=== PATIENT | male | born 1985 | race Caucasian/White ===

== ENCOUNTER 2017-09-18 10:07 | Inpatient (IN) ==
[2017-09-18 11:08] LABS: Baso # (Auto) 0.1 th/mm3 (0.0-0.2); Baso % (Auto) 1.1 % (0.0-2.0); Eos # (Auto) 0.2 th/mm3 (0.0-0.4); Eos % (Auto) 4.4 % (0.0-4.0); Hematocrit 46.2 % (39.0-51.0); Hemoglobin 15.4 gm/dL (13.0-17.0); Lymph # (Auto) 1.6 th/mm3 (1.0-4.8); Lymph % (Auto) 34.2 % (9.0-44.0); Mean Corpuscular HGB Conc 33.3 % (32.0-36.0); Mean Corpuscular Hemoglobin 30.5 pg (27.0-34.0); Mean Corpuscular Volume 91.7 fL (80.0-100.0); Mean Platelet Volume 8.9 fL (7.0-11.0); Mono # (Auto) 0.4 th/mm3 (0.0-0.9); Mono % (Auto) 7.8 % (0.0-8.0); Neut # (Auto) 2.5 th/mm3 (1.8-7.7); Neut % (Auto) 52.5 % (16.0-70.0); Platelet Count 236 th/mm3 (150-450); Red Blood Count 5.04 mil/mm3 (4.50-5.90); Red Cell Distribution Width 13.3 % (11.6-17.2); White Blood Count 4.8 th/mm3 (4.0-11.0)
[2017-09-18 11:30] LABS: Carbon Dioxide 28.5 meq/L (21.0-32.0)
[2017-09-18] MEDS ORDERED: Vancomycin Inj 1 GM/200 ML PIGGYBACK IV.SIG ONE (14:56)
[2017-09-18] MEDS ORDERED: Piperacil/Tazo 3.375 GM Premix 50 ML IV.SIG ONE (14:56)
--- NOTE | 2017-09-18 15:02 | ED ---
HPI General Chief complaint: Skin/Abscess/Foreign Body Stated complaint: Right Foot Complaint Time Seen by Provider: 09/18/17 14:43 History of Present Illness HPI narrative: Patient states that he injured his right foot last Monday and 2 days later became infected. He went to an urgent care facility and they gave him a shot of Rocephin and told him to come back for recheck in 2 days. He also got an x-ray to check to see if "infection went to the bone" but he was told it was negative. Started on Augmentin 875 mg p.o. twice daily since September 13 he reports compliance. Despite compliance with medication the infection has spread. He denies fever, vomiting, or drainage from wound. Also states that he has dysuria and head of his penis has painful excoriation. He denies any penile discharge or a history of STD. Last sex was one and a half weeks ago and was protected. Related Data Home Medications Medication Instructions Recorded Confirmed amoxicillin 875 mg PO BID 09/18/17 09/18/17 hydrocodone-acetaminophen 1 tab PO Q6H PRN 09/18/17 09/18/17 Allergies Allergy/AdvReac Type Severity Reaction Status Date / Time No Known Allergies Allergy Unverified 09/18/17 10:20 Review of Systems ROS Unobtainable All other systems reviewed negative except as stated in HPI PMFSH Social History Social History Substance History: Active Abuse Second Hand Smoke Exposure: Yes Smoking Status: Current every day smoker Tobacco Type: Cigarettes How Often Do You Have a Drink Containing Alcohol: Never Recent Travel in [facility] [place] within the Last 8 Weeks: No Recent Out of Country Travel within the Last 8 Weeks: No Substance Abuse Detail Marijuana: Substance Use Status: Active Route Used Substance Abuse: Inhalation Reason for Use: Feels Good Immunization History Tetanus Immunization: Unsure Hx Influenza Vaccine This Season: No Exam Narrative Exam Narrative: GENERAL: No acute distress. SKIN: Focused skin assessment warm/dry. HEAD: Atraumatic. Normocephalic. EYES: Pupils equal and round. No scleral icterus. No injection or drainage. ENT: No nasal bleeding or discharge. Mucous membranes pink and moist. NECK: Trachea midline. No JVD. CARDIOVASCULAR: Regular rate and rhythm. No murmur appreciated. RESPIRATORY: No accessory muscle use. Clear to auscultation. Breath sounds equal bilaterally. GASTROINTESTINAL: Abdomen soft, non-tender, nondistended. Hepatic and splenic margins not palpable. MUSCULOSKELETAL: Right foot: 2+ DP pulse, positive swelling along the dorsum of the right foot, erythema, no crepitus, sensation intact and full range of motion , no drainage NEUROLOGICAL: Awake and alert. No obvious cranial nerve deficits. Motor grossly within normal limits. Normal speech. PSYCHIATRIC: Appropriate mood and affect; insight and judgment normal. : No penile discharge but erythematous scaly lesion on the head of the penis Course Initial Documented Vital Signs Temperature 97.9 F 09/18/17 10:13 Pulse Rate 83 09/18/17 10:13 Respiratory Rate 16 09/18/17 10:13 Blood Pressure 132/60 09/18/17 10:13 Pulse Oximetry 99 09/18/17 10:13 Last Documented Vital Signs Temperature 97.9 F 09/18/17 10:13 Pulse Rate 64 09/18/17 16:23 Respiratory Rate 16 09/18/17 16:23 Blood Pressure 113/61 09/18/17 16:23 Pulse Oximetry 97 09/18/17 16:23 Medical Decision Making [facility] Narrative Medical decision making narrative: Patient presents to the emergency department with worsening cellulitis of right foot and penile lesion and dysuria. Labs were sent in triage. I have added on urine gonorrhea chlamydia, right foot x- ray, and 1 g IV vancomycin and 3.375 g of IV Zosyn. Patient likely an admission secondary to failing p.o. antibiotics as an outpatient. Normal lactate and CBC. Sightly decreased glucose on chemistry. Xray shows no acute abnormality. ua- for UTI. Patient has urine gc/chlmaydia and blood cultures pending at time of admission. Differential Diagnosis Differential Diagnosis: Cellulitis, abscess, sexually transmitted infection Lab Data Result diagrams: 09/18/17 10:39 09/18/17 10:39 Lab Results 09/18/17 09/18/17 09/18/17 Range/Units 10:39 10:39 10:39 WBC 4.8 (4.0-11.0) th/mm3 RBC 5.04 (4.50-5.90) mil/mm3 Hgb 15.4 (13.0-17.0) gm/dL Hct 46.2 (39.0-51.0) % MCV 91.7 (80.0-100.0) fL MCH 30.5 (27.0-34.0) pg MCHC 33.3 (32.0-36.0) % RDW 13.3 (11.6-17.2) % Plt Count 236 (150-450) th/mm3 MPV 8.9 (7.0-11.0) fL Neut % (Auto) 52.5 (16.0-70.0) % Lymph % (Auto) 34.2 (9.0-44.0) % [place] % (Auto) 7.8 (0.0-8.0) % Eos % (Auto) 4.4 H (0.0-4.0) % Baso % (Auto) 1.1 (0.0-2.0) % Neut # (Auto) 2.5 (1.8-7.7) th/mm3 Lymph # (Auto) 1.6 (1.0-4.8) th/mm3 [place] # (Auto) 0.4 (0.0-0.9) th/mm3 Eos # (Auto) 0.2 (0.0-0.4) th/mm3 Baso # (Auto) 0.1 (0.0-0.2) th/mm3 WBC Differential . Differential Comment Auto diff final Sodium 140 (136-145) meq/L Potassium 4.0 (3.5-5.1) meq/L Chloride 104 (98-107) meq/L Carbon Dioxide 28.5 (21.0-32.0) meq/L Anion Gap 8 (5-15) meq/L BUN 13 (7-18) mg/dL Creatinine 1.21 (0.60-1.30) mg/dL Estimated GFR 69 L (>89) mL/min Random Glucose 63 L (74-106) mg/dL Lactic Acid 2.0 (0.4-2.0) mmol/L Calcium 9.0 (8.5-10.1) mg/dL Urine Color (Yellw/Straw) Urine Clarity (Clear) Urine pH (5.0-8.5) Ur Specific [place] (1.002-1.035) Urine Protein (Neg-Trace) mg/dL Urine Glucose (UA) (Negative) mg/dL Urine Ketones (Negative) mg/dL Urine Occult Blood (Negative) Urine Nitrate (Negative) Urine Bilirubin (Negative) Urine Urobilinogen (Less than 2) mg/dL Ur Leukocyte Esterase (Negative) Urine RBC (0-3) /hpf Urine WBC (0-5) /hpf Micro UA Comment Urine Culture Comments 09/18/17 Range/Units 15:10 WBC (4.0-11.0) th/mm3 RBC (4.50-5.90) mil/mm3 Hgb (13.0-17.0) gm/dL Hct (39.0-51.0) % MCV (80.0-100.0) fL MCH (27.0-34.0) pg MCHC (32.0-36.0) % RDW (11.6-17.2) % Plt Count (150-450) th/mm3 MPV (7.0-11.0) fL Neut % (Auto) (16.0-70.0) % Lymph % (Auto) (9.0-44.0) % [place] % (Auto) (0.0-8.0) % Eos % (Auto) (0.0-4.0) % Baso % (Auto) (0.0-2.0) % Neut # (Auto) (1.8-7.7) th/mm3 Lymph # (Auto) (1.0-4.8) th/mm3 [place] # (Auto) (0.0-0.9) th/mm3 Eos # (Auto) (0.0-0.4) th/mm3 Baso # (Auto) (0.0-0.2) th/mm3 WBC Differential Differential Comment Sodium (136-145) meq/L Potassium (3.5-5.1) meq/L Chloride (98-107) meq/L Carbon Dioxide (21.0-32.0) meq/L Anion Gap (5-15) meq/L BUN (7-18) mg/dL Creatinine (0.60-1.30) mg/dL Estimated GFR (>89) mL/min Random Glucose (74-106) mg/dL Lactic Acid (0.4-2.0) mmol/L Calcium (8.5-10.1) mg/dL Urine Color Yellow (Yellw/Straw) Urine Clarity Clear (Clear) Urine pH 6.0 (5.0-8.5) Ur Specific [place] 1.023 (1.002-1.035) Urine Protein Negative (Neg-Trace) mg/dL Urine Glucose (UA) Negative (Negative) mg/dL Urine Ketones Trace (Negative) mg/dL Urine Occult Blood Negative (Negative) Urine Nitrate Negative (Negative) Urine Bilirubin Negative (Negative) Urine Urobilinogen 2.0 H (Less than 2) mg/dL Ur Leukocyte Esterase Negative (Negative) Urine RBC Less than 1 (0-3) /hpf Urine WBC Less than 1 (0-5) /hpf Micro UA Comment Culture not ind Urine Culture Comments Culture not ind Imaging Data Radiologist's impression: Foot X-Ray 09/18/17 14:56 CONCLUSION: No acute right foot abnormality is identified. There are no features to suggest osteomyelitis. Discharge Plan Discharge Disposition Patient Disposition: 30 Still Patient Discharge Condition Condition: Stable Discharge Details Diagnosis: Cellulitis Physicians Team ED Provider: Sabrina Espinosa Primary Care Provider: UNKNOWN, Rxs /Orders / Referrals /Forms Prescriptions: No Action amoxicillin 875 mg Tablet 875 mg PO BID RF: 0 hydrocodone-acetaminophen 7.5-325 mg Tablet 1 tab PO Q6H PRN (Reason: Pain) RF: 0 Discharge Interventions Interventions: Vital Signs Last Done: 09/18/17 16:23 Status ED Status: With Doctor
[2017-09-18] MEDS ORDERED: Vancomycin Inj 1,000 MG in Sodium Chlor 0.9% Inj 250 ML IV.SIG ONE (15:15)
--- NOTE | 2017-09-18 15:54 | XR ---
EXAM DATE: 09/18/2017 3:38 PM EDT AGE/SEX: 32 years / Male INDICATIONS: Blister on right 3rd digit, possible infection. CLINICAL DATA: This is the patient's initial encounter. Patient reports that signs and symptoms have been present for 1 week and indicates a pain score of 0/10. MEDICAL/SURGICAL HISTORY: None. None. COMPARISON: No prior exams available for comparison. FINDINGS: 3 views of the right foot demonstrate no fracture or dislocation. Mineralization is within normal cruz its. The Lisfranc joint appears intact. There is subchondral sclerosis with osteophytes at the calcan eonavicular articulation. No soft tissue abnormality or radiopaque foreign body is identified. CONCLUSION: No acute right foot abnormality is identified. There are no features to suggest osteomyelitis. Electronically signed by: Elkin Gibson MD 09/18/2017 3:52 PM EDT
[2017-09-18 16:13] LABS: Bilirubin,Urine Negative (Negative); Clarity,Urine Clear (Clear); Color,Urine Yellow (Yellw/Straw); Glucose,Urine (UA) Negative (Negative); Leukocyte Esterase,Urine Negative (Negative); Nitrite,Urine Negative (Negative); Specific Gravity,Urine 1.023 (1.002-1.035)
[2017-09-18] MEDS ORDERED: Bisacodyl 10 MG Supp RECTAL PRN (16:53)
[2017-09-18] MEDS ORDERED: Acetaminophen 325 MG Tablet PO PRN (16:54)
[2017-09-18] MEDS ORDERED: Vancomycin Inj 1,000 MG in Sodium Chlor 0.9% Inj 250 ML IV.SIG SCH (17:03)
[2017-09-18] MEDS ORDERED: Vancomycin Consult Pharmacy 1 EACH OTHER SCH (17:03)
[2017-09-18] MEDS ORDERED: Piperacil/Tazo 3.375 GM Premix 50 ML IV.SIG SCH ×2 (17:15→18:00)
[2017-09-18] MEDS: Enoxaparin Inj 40 MG/0.4 ML Syringe SQ SCH (17:47)
--- NOTE | 2017-09-18 18:19 | P.HP ---
History of Present Illness Service: [facility] Primary Care Physician: UNKNOWN Chief Complaint: Infection in my foot History of Present Illness: 32-year-old male with no past medical history who presents to the emergency department with complaints of right foot infection. Patient reports that several days ago he noticed a blister on the top of his right foot middle toe due to his steel toe boots. He began noticing redness, and swelling and became concerned and visited an urgent care on Monday. Patient reports that he was given a Rocephin shot and returned back to urgent care on after having x-rays done. On Monday when he was seen in the urgent care patient reports he received another Rocephin shot and an attempt was made to drain foot infection however he reports that nothing drained out of it. He was provided with Augmentin and states that he has been taking this as prescribed. He began noticing swelling once again along with warmth, and redness. Patient also states that pain became worse therefore decided to come to the emergency department for further evaluation. He denies fevers, chills, nausea, vomiting, diarrhea, cough or shortness of breath. Patient does report white patches on the inside of his mouth since starting oral Augmentin. He also reports dysuria along with a white colored discharge and states that he feels as if "things are plugged up". Patient also noticed a sore on the head of his penis which she is very concerned over, denies any pain. Last sexual contact was about 1-1/2 weeks ago with protection. - Diagnosis (1) Failure of outpatient treatment (2) Candidiasis of mouth (3) Penile discharge (4) Cellulitis Inpatient Certification: I certify that the inpatient services were ordered in accordance with Medicare regulations governing the order. This includes certification that hospital inpatient services are reasonable and necessary and in the case of services not specified as inpatient-only under 42 CFR 419.22(n), that they are appropriately provided as inpatient services in accordance to with the 2-midnight benchmark under 43 CFR 412.3(e) Estimated Total Length of Stay (Days): 3 Plans for Post Hospital Care: Home Review of Systems All other systems reviewed negative except as stated in HPI PMFSH - History History Provided By: Patient - Medical History Medical History: Medical History (Last Updated 09/18/17 @ 18:33 by Anushka Clemente) Group A streptococcal infection Staph infection - Tobacco History Second Hand Smoke Exposure: Yes Tobacco Use In Past 30 Days: Yes Smoking Status: Current every day smoker Tobacco Type: Cigarettes - Alcohol History How Often Do You Have a Drink Containing Alcohol: Never - Substance Use History Substance History: Active Abuse - Substance Use Type Marijuana Status: Active Route Used: Inhalation Reason for Use: Feels Good - Travel History Recent Travel in the [place] Within the Last 8 Weeks: No Recent Travel Out of the Country Within the Last 8 Weeks: No - Immunization History Tetanus Immunization: Unsure Hx Influenza Vaccine This Season: No Medications and Allergies Active Medications: Active Medications Acetaminophen (Tylenol) 650 mg PO Q4H PRN PRN Reason: Temp > 100.4 Al Hydroxide/Mg Hydroxide (Milk Of Magnesia Liq) 30 ml PO Q12H PRN PRN Reason: Mild Constipation Bisacodyl (Dulcolax Supp) 10 mg RECTAL DAILY PRN PRN Reason: SEVERE CONSITIPATION Enoxaparin Sodium (Lovenox Inj) 40 mg SQ Q24H [facility] Last Admin: 09/18/17 17:47 Dose: 40 mg Sodium Chloride (Ns Inj) 1,000 mls @ 100 mls/hr IV.CONT .Q10H [facility] Pharmacy Profile Note (Vancomycin Consult Pharmacy) 0 mls @ 0 mls/hr OTHER UNSCH [facility] Piperacillin/Tazobactam/Dextrose (Zosyn 3.375 Gm Premix) 50 mls @ 100 mls/hr IV.SIG Q8H [facility] Vancomycin HCl 1,000 mg/ (Sodium Chloride) 250 mls @ 250 mls/hr IV.SIG Q12H [facility] Lactulose (Lactulose Liq) 30 ml PO DAILY PRN PRN Reason: SEVERE CONSITIPATION Metoclopramide HCl (Reglan Inj) 5 mg IV.PUSH Q6HR PRN; Protocol PRN Reason: NAUSEA OR VOMITING Miscellaneous Information ([facility] [facility] Ordered Lab Info) 0 each OTHER ONCE ONE Stop: 09/20/17 15:46 Senna/Docusate Sodium (Celi-Colace) 1 tab PO BID [facility] Sennosides (Senokot) 17.2 mg PO Q12H PRN PRN Reason: Moderate Constipation Temazepam (Restoril) 15 mg PO HS PRN PRN Reason: INSOMNIA Allergies Allergy/AdvReac Type Severity Reaction Status Date / Time No Known Allergies Allergy Unverified 09/18/17 10:20 Home Medications Medication Instructions Recorded Confirmed Type amoxicillin 875 mg PO BID 09/18/17 09/18/17 History hydrocodone-acetaminophen 1 tab PO Q6H PRN 09/18/17 09/18/17 History Exam Vital signs: Vital Signs 09/18/17 10:13 09/18/17 10:19 09/18/17 16:23 Temperature 36.6 C Pulse Rate 83 64 Respiratory Rate 16 17 16 Blood Pressure 132/60 113/61 Pulse Oximetry 99 97 Intake & Output 09/17/17 09/18/17 09/18/17 18:59 06:59 18:59 Weight 77.111 kg Narrative: GENERAL: Well-developed well-nourished young male, appears to be in no acute distress. SKIN: Warm and dry. HEAD: Atraumatic. Normocephalic. EYES: Pupils equal and round. No scleral icterus. No injection or drainage. ENT: No nasal bleeding or discharge. Mucous membranes pink and moist. White patches noted on cheek mucous membranes. NECK: Trachea midline. No JVD. CARDIOVASCULAR: Regular rate and rhythm. RESPIRATORY: No accessory muscle use. Clear to auscultation. Breath sounds equal bilaterally. GASTROINTESTINAL: Abdomen soft, non-tender, nondistended. GENITOURINARY: (Male RN digital tech in room during exam.) Dry erythematous scaly lesion noted on head of penis. Meatus with dry white discharge. MUSCULOSKELETAL: Extremities without clubbing or cyanosis. No obvious deformities. Right foot third metatarsal with dry wound noted on dorsal aspect , surrounding erythema, warmth, and edema. Trace edema also noted on dorsal aspect of foot + tenderness. Capillary refill <3 seconds, normal ROM in sensation. NEUROLOGICAL: Awake and alert, oriented x3. No obvious cranial nerve deficits. Motor grossly within normal limits. Five out of 5 muscle strength in the arms and legs. Normal speech. PSYCHIATRIC: Appropriate mood and affect; insight and judgment normal. Results - Labs CBC & Chem 7: 09/18/17 10:39 09/18/17 10:39 Labs: Laboratory Results - last 24 hr 09/18/17 09/18/17 09/18/17 10:39 10:39 10:39 WBC 4.8 RBC 5.04 Hgb 15.4 Hct 46.2 MCV 91.7 MCH 30.5 MCHC 33.3 RDW 13.3 Plt Count 236 MPV 8.9 Neut % (Auto) 52.5 Lymph % (Auto) 34.2 [place] % (Auto) 7.8 Eos % (Auto) 4.4 H Baso % (Auto) 1.1 Neut # (Auto) 2.5 Lymph # (Auto) 1.6 [place] # (Auto) 0.4 Eos # (Auto) 0.2 Baso # (Auto) 0.1 WBC Differential . Differential Comment Auto diff final Sodium 140 Potassium 4.0 Chloride 104 Carbon Dioxide 28.5 Anion Gap 8 BUN 13 Creatinine 1.21 Estimated GFR 69 L Random Glucose 63 L Lactic Acid 2.0 Calcium 9.0 Urine Color Urine Clarity Urine pH Ur Specific [place] Urine Protein Urine Glucose (UA) Urine Ketones Urine Occult Blood Urine Nitrate Urine Bilirubin Urine Urobilinogen Ur Leukocyte Esterase Urine RBC Urine WBC Micro UA Comment Urine Culture Comments 09/18/17 15:10 WBC RBC Hgb Hct MCV MCH MCHC RDW Plt Count MPV Neut % (Auto) Lymph % (Auto) [place] % (Auto) Eos % (Auto) Baso % (Auto) Neut # (Auto) Lymph # (Auto) [place] # (Auto) Eos # (Auto) Baso # (Auto) WBC Differential Differential Comment Sodium Potassium Chloride Carbon Dioxide Anion Gap BUN Creatinine Estimated GFR Random Glucose Lactic Acid Calcium Urine Color Yellow Urine Clarity Clear Urine pH 6.0 Ur Specific [place] 1.023 Urine Protein Negative Urine Glucose (UA) Negative Urine Ketones Trace Urine Occult Blood Negative Urine Nitrate Negative Urine Bilirubin Negative Urine Urobilinogen 2.0 H Ur Leukocyte Esterase Negative Urine RBC Less than 1 Urine WBC Less than 1 Micro UA Comment Culture not ind Urine Culture Comments Culture not ind - Imaging Impressions Foot X-Ray 09/18/17 14:56 CONCLUSION: No acute right foot abnormality is identified. There are no features to suggest osteomyelitis. Caprini VTE Risk Assessment Caprini VTE Risk Assessment: No/Low Risk (score <= 1) Caprini Risk Assessment Model: Point Value = 1 Point Value = 2 Point Value = 3 Point Value = 5 Age 41-60 Minor surgery BMI > 25 kg/m2 Swollen legs Varicose veins or History of unexplained or recurrent spontaneous Oral contraceptives or hormone replacement Sepsis (< 1 month) Serious lung disease, including pneumonia (< 1 month) Abnormal pulmonary function Acute myocardial infarction Congestive heart failure (< 1 month) History of inflammatory bowel disease Medical patient at bed rest Age 61-74 Arthroscopic surgery Major open surgery (> 45 min) Laparoscopic surgery (> 45 min) Malignancy Confined to bed (> 72 hours) Immobilizing plaster cast Central venous access Age >= 75 History of VTE Family history of VTE Factor V Leiden Prothrombin [id number] Lupus anticoagulant Anticardiolipin antibodies Elevated serum homocysteine Heparin-induced thrombocytopenia Other congenital or acquired thrombophilia Stroke (< 1 month) Elective arthroplasty Hip, pelvis, or leg fracture Acute spinal cord injury (< 1 month) Prophylaxis Regimen: Total Risk Factor Score Risk Level Prophylaxis Regimen 0-1 Low Early ambulation 2 Moderate Order ONE of the following: *Sequential Compression Device (SCD) *Heparin 5000 units SQ BID 3-4 Higher Order ONE of the following medications: *Heparin 5000 units SQ TID *Enoxaparin/Lovenox 40 mg SQ daily (WT < 150 kg, CrCl > 30 mL/min) *Enoxaparin/Lovenox 30 mg SQ daily (WT < 150 kg, CrCl > 10-29 mL/min) *Enoxaparin/Lovenox 30 mg SQ BID (WT < 150 kg, CrCl > 30 mL/min) AND/OR *Sequential Compression Device (SCD) 5 or more Highest Order ONE of the following medications: *Heparin 5000 units SQ TID (Preferred with Epidurals) *Enoxaparin/Lovenox 40 mg SQ daily (WT < 150 kg, CrCl > 30 mL/min) *Enoxaparin/Lovenox 30 mg SQ daily (WT < 150 kg, CrCl > 10-29 mL/min) *Enoxaparin/Lovenox 30 mg SQ BID (WT < 150 kg, CrCl > 30 mL/min) AND *Sequential Compression Device (SCD) Assessment and Plan - Assessment (1) Failure of outpatient treatment Code(s): Z78.9 - Other specified health status Status: Acute (2) Candidiasis of mouth Code(s): B37.0 - Candidal stomatitis Status: Acute (3) Penile discharge Code(s): R36.9 - Urethral discharge, unspecified Status: Acute (4) Cellulitis Code(s): L03.90 - Cellulitis, unspecified Status: Acute - Plan 32-year-old male who presents to the emergency department with complaints of worsening right foot pain and infection. Patient recently seen and evaluated in urgent care s/p attempted I&D. Right foot cellulitis Failed outpatient treatment (Augmentin) -CBC reviewed, no leukocytosis, lactic acid 2.0, hemodynamically stable no tachycardia, afebrile - blood cultures 2 obtained and pending, wound is dry, unable to obtain specimen for culture -Foot x-ray completed reviewed, no acute right foot abnormality identified, no features to suggest osteomyelitis. -Patient was given 1 dose of IV Zosyn and vancomycin in the emergency department, will continue -IV fluids for hydration, most likely discontinue tomorrow. -Pain control with p.o. Santa Claus Oral candidiasis -Secondary to Augmentin, nystatin swish and swallow Penile discharge -UA essentially unremarkable, pending chlamydia and gonorrhea -Whit discharge appears to be candidiasis, symptoms also began after starting oral Augmentin - Will treat with 1 timed dose of Diflucan, monitor response. DVT prophylaxis-subcu Lovenox Discussed Condition With: , patient, and mother. (4) Cellulitis Qualifiers: Site of cellulitis: extremity Site of cellulitis of extremity: lower extremity Laterality: right Qualified Code(s): L03.115 - Cellulitis of right lower limb
[2017-09-18] MEDS ORDERED: Fluconazole 100 MG Tablet PO ONE (18:25)
[2017-09-18] MEDS ORDERED: Naloxone Inj 0.4 MG/ML Vial IV.PUSH PRN (18:45)
[2017-09-18] MEDS: Sod Chloride 0.9% Inj 1,000 ML IV.CONT SCH (19:47)
[2017-09-18] MEDS: Senna/Docusate Sodium 8.6/50 MG Tablet PO SCH (21:42)
[2017-09-18] MEDS: Temazepam 15 MG Capsule PO PRN (21:42)
[2017-09-18] MEDS: Nystatin Liq 500,000 UNIT/5 ML UDC SWISH-SWAL SCH (23:46)
[2017-09-19] MEDS: Piperacil/Tazo 3.375 GM Premix 50 ML IV.SIG SCH ×4 (02:03→23:59)
[2017-09-19] MEDS: Sod Chloride 0.9% Inj 1,000 ML IV.CONT SCH ×3 (05:42→23:00)
[2017-09-19] MEDS: Vancomycin Inj 1,000 MG in Sodium Chlor 0.9% Inj 250 ML IV.SIG SCH ×2 (05:42→16:50)
[2017-09-19] MEDS: Nystatin Liq 500,000 UNIT/5 ML UDC SWISH-SWAL SCH ×5 (08:18→20:00)
[2017-09-19] MEDS: Senna/Docusate Sodium 8.6/50 MG Tablet PO SCH ×2 (08:19→20:00)
[2017-09-19 11:03] LABS: Baso % (Auto) 1.1 % (0.0-2.0); Eos # (Auto) 0.2 th/mm3 (0.0-0.4); Eos % (Auto) 4.2 % (0.0-4.0); Hematocrit 43.8 % (39.0-51.0); Hemoglobin 14.6 gm/dL (13.0-17.0); Lymph # (Auto) 1.5 th/mm3 (1.0-4.8); Lymph % (Auto) 35.5 % (9.0-44.0); Mean Corpuscular HGB Conc 33.4 % (32.0-36.0); Mean Corpuscular Hemoglobin 30.4 pg (27.0-34.0); Mean Platelet Volume 8.6 fL (7.0-11.0); Mono # (Auto) 0.3 th/mm3 (0.0-0.9); Mono % (Auto) 8.2 % (0.0-8.0); Neut # (Auto) 2.2 th/mm3 (1.8-7.7); Platelet Count 227 th/mm3 (150-450); Red Blood Count 4.81 mil/mm3 (4.50-5.90); Red Cell Distribution Width 13.4 % (11.6-17.2); White Blood Count 4.3 th/mm3 (4.0-11.0)
[2017-09-19 11:24] LABS: Albumin 3.7 g/dL (3.4-5.0); Anion Gap 7 meq/L (5-15); Aspartate Aminotransferase 19 U/L (15-37); Blood Urea Nitrogen 11 mg/dL (7-18); Calcium 8.7 mg/dL (8.5-10.1); Carbon Dioxide 29.2 meq/L (21.0-32.0); Chloride 106 meq/L (98-107); Glomerular Filtration Rate 84 mL/min (>89); Glucose,Random 103 mg/dL (74-106); Potassium 4.2 meq/L (3.5-5.1); Sodium 142 meq/L (136-145)
[2017-09-19 11:27] LABS: Alanine Aminotransferase 25 U/L (12-78); Alkaline Phosphatase 85 U/L (45-117)
--- NOTE | 2017-09-19 14:43 | P.PN ---
Subjective Interval history: Patient is seen sitting up in bed eating lunch. His mother is present. He tells me that he is feeling better but is still suffering from irritation on his penis and sores in his mouth. He thinks that his foot is improved and is not as red or swollen as it was. Denies any shortness of breath or chest pain. Denies any nausea vomiting or diarrhea. He has been voiding well -just has some burning when urinating. He did have a nicotine patch placed however he said it made his arm itchy where it was. He took the patch off and it has improved. Does not desire any other nicotine replacement. Physical Exam Vital signs: Vital Signs 09/18/17 16:23 09/18/17 19:46 09/19/17 00:00 Temperature 98.9 F 98.6 F Pulse Rate 64 56 L 80 Respiratory Rate 16 16 17 Blood Pressure 113/61 121/70 124/69 Pulse Oximetry 97 96 09/19/17 04:00 09/19/17 07:41 09/19/17 12:00 Temperature 98.4 F 98.0 F 98.0 F Pulse Rate 68 78 66 Respiratory Rate 18 Blood Pressure 119/74 116/78 125/67 Pulse Oximetry 97 97 98 Intake & Output 09/18/17 09/19/17 09/19/17 18:59 06:59 18:59 Intake Total 1350 / 1350 300 / 300 Balance 1350 / 1350 300 / 300 Weight 77.111 kg Intake: IV 1350 / 1350 300 / 300 NS Inj 1,000 ML @ 100 mls/hr IV 1000 / 1000 .CONT .Q10H [facility] Rx#:[id number] Zosyn 3.375 GM Premix 50 ML @ 100 / 100 50 / 50 100 mls/hr IV.SIG Q8H [facility] Rx#: [id number] Vancomycin Inj 1,000 MG In NS 250 / 250 250 / 250 Inj 250 ML @ 250 mls/hr IV.SIG Q12H [facility] Rx#:[id number] Narrative: GENERAL: Well-developed well-nourished young male, appears to be in no acute distress. SKIN: Warm and dry. HEAD: Atraumatic. Normocephalic. EYES: Pupils equal and round. No scleral icterus. No injection or drainage. ENT: No nasal bleeding or discharge. Mucous membranes pink and moist. White patches noted on cheek mucous membranes. Small ulcerated lesion inside right corner of mouth. No notable adenopathy. NECK: Trachea midline. No JVD. CARDIOVASCULAR: Regular rate and rhythm. RESPIRATORY: No accessory muscle use. Clear to auscultation. Breath sounds equal bilaterally. GASTROINTESTINAL: Abdomen soft, non-tender, nondistended. GENITOURINARY: (Patient refused analysis internship) head of penis beefy red with crusting around meatus MUSCULOSKELETAL: Extremities without clubbing or cyanosis. No obvious deformities. Right foot third metatarsal with dry wound noted on dorsal aspect , surrounding erythema, warmth, and edema. Erythema extends to midfoot. trace edema also noted on dorsal aspect of foot + tenderness. Capillary refill <3 seconds, normal ROM in sensation. NEUROLOGICAL: Awake and alert, oriented x3. No obvious cranial nerve deficits. Motor grossly within normal limits. Five out of 5 muscle strength in the arms and legs. Normal speech. PSYCHIATRIC: Appropriate mood and affect; insight and judgment normal. Results - Labs CBC & Chem 7: 09/19/17 10:20 09/19/17 10:20 Laboratory Results - last 24 hr 09/18/17 09/18/17 09/19/17 10:22 15:10 10:20 WBC 4.3 RBC 4.81 Hgb 14.6 Hct 43.8 MCV 91.0 MCH 30.4 MCHC 33.4 RDW 13.4 Plt Count 227 MPV 8.6 Neut % (Auto) 51.0 Lymph % (Auto) 35.5 [place] % (Auto) 8.2 H Eos % (Auto) 4.2 H Baso % (Auto) 1.1 Neut # (Auto) 2.2 Lymph # (Auto) 1.5 [place] # (Auto) 0.3 Eos # (Auto) 0.2 Baso # (Auto) 0.0 WBC Differential . Differential Comment Auto diff final Sodium Potassium Chloride Carbon Dioxide Anion Gap BUN Creatinine Estimated GFR Random Glucose Calcium Total Bilirubin AST ALT Alkaline Phosphatase Total Protein Albumin Urine Color Yellow Urine Clarity Clear Urine pH 6.0 Ur Specific [place] 1.023 Urine Protein Negative Urine Glucose (UA) Negative Urine Ketones Trace Urine Occult Blood Negative Urine Nitrate Negative Urine Bilirubin Negative Urine Urobilinogen 2.0 H Ur Leukocyte Esterase Negative Urine RBC Less than 1 Urine WBC Less than 1 Micro UA Comment Culture not ind Urine Culture Comments Culture not ind Chlam trachomat DNA PCR Not detected N.gonorrhoeae DNA (PCR) Not detected 09/19/17 10:20 WBC RBC Hgb Hct MCV MCH MCHC RDW Plt Count MPV Neut % (Auto) Lymph % (Auto) [place] % (Auto) Eos % (Auto) Baso % (Auto) Neut # (Auto) Lymph # (Auto) [place] # (Auto) Eos # (Auto) Baso # (Auto) WBC Differential Differential Comment Sodium 142 Potassium 4.2 Chloride 106 Carbon Dioxide 29.2 Anion Gap 7 BUN 11 Creatinine 1.03 Estimated GFR 84 L Random Glucose 103 Calcium 8.7 Total Bilirubin 0.3 AST 19 ALT 25 Alkaline Phosphatase 85 Total Protein 7.0 Albumin 3.7 Urine Color Urine Clarity Urine pH Ur Specific [place] Urine Protein Urine Glucose (UA) Urine Ketones Urine Occult Blood Urine Nitrate Urine Bilirubin Urine Urobilinogen Ur Leukocyte Esterase Urine RBC Urine WBC Micro UA Comment Urine Culture Comments Chlam trachomat DNA PCR N.gonorrhoeae DNA (PCR) Microbiology 09/18/17 15:15 Blood - Peripheral Aerobic Blood Culture - Preliminary No growth in 1 day 09/18/17 15:15 Blood - Peripheral Anaerobic Blood Culture - Preliminary No growth in 1 day 09/18/17 10:39 Blood - Peripheral Aerobic Blood Culture - Preliminary No growth in 1 day 09/18/17 10:39 Blood - Peripheral Anaerobic Blood Culture - Preliminary No growth in 1 day - Imaging Impressions Foot X-Ray 09/18/17 14:56 CONCLUSION: No acute right foot abnormality is identified. There are no features to suggest osteomyelitis. Assessment and Plan - Assessment (1) Failure of outpatient treatment Code(s): Z78.9 - Other specified health status Status: Acute (2) Candidiasis of mouth Code(s): B37.0 - Candidal stomatitis Status: Acute (3) Penile discharge Code(s): R36.9 - Urethral discharge, unspecified Status: Acute (4) Cellulitis Code(s): L03.90 - Cellulitis, unspecified Status: Acute - Plan 32-year-old male who presents to the emergency department with complaints of worsening right foot pain and infection. Patient recently seen and evaluated in urgent care s/p attempted I&D. Also has complaint of penile irritation and discharge. Right foot cellulitis Failed outpatient treatment (Augmentin) -CBC reviewed, no leukocytosis, lactic acid 2.0, hemodynamically stable no tachycardia, afebrile - blood cultures 2 obtained and pending, wound is dry, unable to obtain specimen for culture -Foot x-ray completed reviewed, no acute right foot abnormality identified, no features to suggest osteomyelitis. -Patient was given 1 dose of IV Zosyn and vancomycin in the emergency department, will continue -IV fluids for hydration, discontinue when kidney function improves. -Pain control with p.o. [place] Oral candidiasis -Possibly secondary to Augmentin, nystatin swish and swallow Penile discharge -UA essentially unremarkable, negative chlamydia and gonorrhea -Suspect candidiasis -will order topical antifungal/steroid -Consider Diflucan after antibiotic treatment if not improved -Patient agrees to add additional STD testing -RPR, HIV and HSV ordered DVT prophylaxis-subcu Lovenox Discussed Condition With: Nurse, patient, and mother. (4) Cellulitis Qualifiers: Site of cellulitis: extremity Site of cellulitis of extremity: lower extremity Laterality: right Qualified Code(s): L03.115 - Cellulitis of right lower limb
[2017-09-19] MEDS: Enoxaparin Inj 40 MG/0.4 ML Syringe SQ SCH (16:46)
[2017-09-19] MEDS: Temazepam 15 MG Capsule PO PRN (20:00)
[2017-09-20] MEDS: Vancomycin Inj 1,000 MG in Sodium Chlor 0.9% Inj 250 ML IV.SIG SCH ×2 (03:54→16:19)
[2017-09-20] MEDS: Nystatin Liq 500,000 UNIT/5 ML UDC SWISH-SWAL SCH ×2 (08:12→12:22)
[2017-09-20] MEDS: Senna/Docusate Sodium 8.6/50 MG Tablet PO SCH (08:12)
[2017-09-20] MEDS: Piperacil/Tazo 3.375 GM Premix 50 ML IV.SIG SCH ×2 (08:12→16:20)
[2017-09-20] MEDS: Sod Chloride 0.9% Inj 1,000 ML IV.CONT SCH (08:15)
[2017-09-20 09:02] LABS: Eos # (Auto) 0.2 th/mm3 (0.0-0.4); Eos % (Auto) 5.2 % (0.0-4.0); Hematocrit 44.8 % (39.0-51.0); Lymph # (Auto) 1.8 th/mm3 (1.0-4.8); Lymph % (Auto) 42.1 % (9.0-44.0); Mean Corpuscular HGB Conc 33.5 % (32.0-36.0); Mean Corpuscular Hemoglobin 30.4 pg (27.0-34.0); Mean Corpuscular Volume 90.7 fL (80.0-100.0); Mean Platelet Volume 9.8 fL (7.0-11.0); Mono # (Auto) 0.3 th/mm3 (0.0-0.9); Mono % (Auto) 7.9 % (0.0-8.0); Neut # (Auto) 1.9 th/mm3 (1.8-7.7); Neut % (Auto) 43.8 % (16.0-70.0); Platelet Count 208 th/mm3 (150-450); Red Blood Count 4.94 mil/mm3 (4.50-5.90); Red Cell Distribution Width 13.5 % (11.6-17.2); White Blood Count 4.3 th/mm3 (4.0-11.0)
[2017-09-20 09:37] LABS: Albumin 3.6 g/dL (3.4-5.0); Anion Gap 8 meq/L (5-15); Aspartate Aminotransferase 16 U/L (15-37); Blood Urea Nitrogen 11 mg/dL (7-18); Calcium 8.9 mg/dL (8.5-10.1); Carbon Dioxide 28.7 meq/L (21.0-32.0); Chloride 104 meq/L (98-107); Glomerular Filtration Rate Greater Than 89 mL/min (>89); Glucose,Random 114 mg/dL (74-106); Potassium 3.9 meq/L (3.5-5.1); Sodium 141 meq/L (136-145)
[2017-09-20 09:38] LABS: Alanine Aminotransferase 25 U/L (12-78)
[2017-09-20 09:40] LABS: Alkaline Phosphatase 88 U/L (45-117)
[2017-09-20] MEDS ORDERED: Pharmacy Ordered Lab Info OTHER ONE (15:45)
--- NOTE | 2017-09-20 16:36 | P.PN ---
Subjective Interval history: Nursing denies any deterioration since last night. Patient thinks that his foot erythema and pain is improved. Still has some mild oral irritation with his oral ulcers. Says that his dysuria has improved. Physical Exam Vital signs: Vital Signs 09/19/17 20:00 09/19/17 20:30 09/20/17 00:00 Temperature 97.8 F 98.6 F Pulse Rate 66 64 Respiratory Rate 20 18 17 Blood Pressure 130/64 106/59 L Pulse Oximetry 97 100 09/20/17 04:59 09/20/17 08:00 09/20/17 12:00 Temperature 98.3 F 97.8 F Pulse Rate 69 67 Respiratory Rate 17 16 18 Blood Pressure 125/74 126/62 Pulse Oximetry 98 97 Intake & Output 09/19/17 09/20/17 09/20/17 18:59 06:59 18:59 Intake Total 2080 / 2080 540 / 540 1050 / 1050 Balance 2080 / 2080 540 / 540 1050 / 1050 Weight 77 kg Intake: IV 1600 / 1600 300 / 300 1050 / 1050 NS Inj 1,000 ML @ 100 mls/hr IV 1000 / 1000 1000 / 1000 .CONT .Q10H [facility] Rx#:[id number] Zosyn 3.375 GM Premix 50 ML @ 100 / 100 50 / 50 50 / 50 100 mls/hr IV.SIG Q8H [facility] Rx#: [id number] Vancomycin Inj 1,000 MG In NS 500 / 500 250 / 250 Inj 250 ML @ 250 mls/hr IV.SIG Q12H [facility] Rx#:[id number] Oral 480 / 480 240 / 240 Other: # Voids 1 3 Narrative: Erythematous glans penis diffusely with no ayse blistering noted. Very dry discharge noted at urethral meatus. No blistering or other lesions noted over the scrotum or thighs. Oral lesions appear to be ulcerated on loose gingiva but no ayse blistering. Right toe erythema is improved especially in comparison to the pictures that the patient has shown me upon admission. Has no significant pain upon distal phalanx manipulation. Able to bear weight without difficulty. Results - Labs CBC & Chem 7: 09/20/17 07:53 09/20/17 07:53 Laboratory Results - last 24 hr 07/18/18 07/18/18 07/18/18 07:53 07:53 07:53 WBC 4.3 RBC 4.94 Hgb 15.0 Hct 44.8 MCV 90.7 MCH 30.4 MCHC 33.5 RDW 13.5 Plt Count 208 MPV 9.8 Neut % (Auto) 43.8 Lymph % (Auto) 42.1 [place] % (Auto) 7.9 Eos % (Auto) 5.2 H Baso % (Auto) 1.0 Neut # (Auto) 1.9 Lymph # (Auto) 1.8 [place] # (Auto) 0.3 Eos # (Auto) 0.2 Baso # (Auto) 0.0 WBC Differential . Differential Comment Auto diff final Sodium Potassium Chloride Carbon Dioxide Anion Gap BUN Creatinine Estimated GFR Random Glucose Calcium Total Bilirubin AST ALT Alkaline Phosphatase Total Protein Albumin RPR Nonreactive HIV 1&2 Ab/P24 Ag 4thGn Nonreactive 09/20/17 07:53 WBC RBC Hgb Hct MCV MCH MCHC RDW Plt Count MPV Neut % (Auto) Lymph % (Auto) [place] % (Auto) Eos % (Auto) Baso % (Auto) Neut # (Auto) Lymph # (Auto) [place] # (Auto) Eos # (Auto) Baso # (Auto) WBC Differential Differential Comment Sodium 141 Potassium 3.9 Chloride 104 Carbon Dioxide 28.7 Anion Gap 8 BUN 11 Creatinine 0.93 Estimated GFR Greater than 89 Random Glucose 114 H Calcium 8.9 Total Bilirubin 0.2 AST 16 ALT 25 Alkaline Phosphatase 88 Total Protein 7.0 Albumin 3.6 RPR HIV 1&2 Ab/P24 Ag 4thGn Microbiology 09/18/17 15:15 Blood - Peripheral Aerobic Blood Culture - Preliminary No growth in 2 days 09/18/17 15:15 Blood - Peripheral Anaerobic Blood Culture - Preliminary No growth in 2 days 09/18/17 10:39 Blood - Peripheral Aerobic Blood Culture - Preliminary No growth in 2 days 09/18/17 10:39 Blood - Peripheral Anaerobic Blood Culture - Preliminary No growth in 2 days Assessment and Plan - Assessment (1) Failure of outpatient treatment Code(s): Z78.9 - Other specified health status Status: Acute (2) Candidiasis of mouth Code(s): B37.0 - Candidal stomatitis Status: Acute (3) Penile discharge Code(s): R36.9 - Urethral discharge, unspecified Status: Acute (4) Cellulitis Code(s): L03.90 - Cellulitis, unspecified Status: Acute - Plan Right second toe cellulitis, improving significantly with antibiotics, will discharge on Levaquin and doxycycline. RPR, HIV, gonorrhea, chlamydia tests are all negative. HSV tests are still pending. Patient was counseled on refraining from any sexual activity whatsoever for at least the next 2 weeks and ultimately needs to be cleared by PCP prior to returning to such activities well. Patient was extensively counseled on this matter. To continue with oral nystatin swish and swallow and to continue with oral Diflucan and topical nystatin/steroid cream for penile lesion. Patient has met maximal benefit from hospitalization and is clinically stable for discharge. (4) Cellulitis Qualifiers: Site of cellulitis: extremity Site of cellulitis of extremity: lower extremity Laterality: right Qualified Code(s): L03.115 - Cellulitis of right lower limb
[2017-09-20] MEDS ORDERED: Fluconazole 100 MG Tablet PO ONE (16:45)
[2017-09-21 00:37] LABS: HSV 1 IgG Positive (Negative); HSV 2 IgG Positive (Negative)
== END 2017-09-20 17:09 | disposition home or self-care (01) ==
LOC: NEPE 10:07 → NEDA 16:28 → NEPHCDU 20:55 → N07 09-19 15:03
PROVIDERS: ADMIT Hospitalist; ATTEND Hospitalist
DX: A60.01 Herpesviral infection of penis; L03.031 Cellulitis of right toe; F12.10 Cannabis abuse, uncomplicated; F17.210 Nicotine dependence, cigarettes, uncomplicated; B37.0 Candidal stomatitis